=== PATIENT | male | born 1955 | race Caucasian/White ===

== ENCOUNTER → 2023-08-07 12:23 | Outpatient (REF) | payer BC, SELFPAY ==
[2023-08-07 13:46] LABS: ALT (SGPT) 39 U/L (0-50); AST (SGOT) 43 U/L (17-59); Albumin 4.2 g/dl (3.5-5.0); Alkaline Phosphatase 184 U/L (38-126); Blood Urea Nitrogen 24 mg/dl (9-20); Calcium 9.5 mg/dl (8.4-10.2); Carbon Dioxide 26 mmol/L (22-30); Chloride 103 mmol/L (98-107); Glucose 94 mg/dl (70-99); Sodium 138 mmol/L (135-145); Total Bilirubin 0.7 mg/dl (0.2-1.3); Total Protein 6.9 g/dl (6.3-8.2); eGFR > 60.00
== END ==
LOC: REG 12:23
PROVIDERS: ATTENDING PHYSICIAN Internal Medicine
DX: I10 Essential (primary) hypertension (principal)
CPT/HCPCS: 36415; 80053

== ENCOUNTER → 2023-08-31 18:06 | Outpatient (REF) | payer BC, SELFPAY | LOC: PAVMRI 18:06 | PROVIDERS: ATTENDING PHYSICIAN Orthopaedic Surgery; FAMILY PHYSICIAN Internal Medicine | DX: M25.572 Pain in left ankle and joints of left foot (principal) | CPT/HCPCS: 73721 ==

== ENCOUNTER → 2023-11-15 08:41 | Outpatient (REF) | payer BC, SELFPAY ==
[2023-11-15 10:57] LABS: Albumin 4.3 g/dl (3.5-5.0); Blood Urea Nitrogen 25 mg/dl (9-20); Calcium 9.4 mg/dl (8.4-10.2); Carbon Dioxide 24 mmol/L (22-30); Chloride 104 mmol/L (98-107); Glucose 107 mg/dl (70-99); Phosphorus 3.9 mg/dl (2.5-4.5); Potassium 4.2 mmol/L (3.5-5.1); Sodium 140 mmol/L (135-145); eGFR > 60.00
== END ==
LOC: REG 08:41
PROVIDERS: ATTENDING PHYSICIAN Internal Medicine
DX: I10 Essential (primary) hypertension (principal)
CPT/HCPCS: 36415; 80069

== ENCOUNTER → 2023-12-12 15:40 | Outpatient (REF) | payer BC, SELFPAY | LOC: REG 15:40 | PROVIDERS: ATTENDING PHYSICIAN Allergy & Immunology; FAMILY PHYSICIAN Internal Medicine | DX: J30.89 Other allergic rhinitis (principal); J30.1 Allergic rhinitis due to pollen; J30.2 Other seasonal allergic rhinitis | CPT/HCPCS: 36415; 86003 ==

== ENCOUNTER → 2024-03-04 12:33 | Outpatient (REF) | payer BC, SELFPAY ==
[2024-03-04 14:07] LABS: % Basophils 0.4 % (0-2); % Eosinophils 0.4 % (0-6); % Immature Granulocytes 0.2 % (0-0.5); % Lymphocytes 30.3 % (20.5-51.1); % Monocytes 9.3 % (1.7-9.3); % Neutrophils 59.4 % (42.2-75.2); Absolute Lymphocytes 1.4 10^3/uL (1.2-3.4); Absolute Monocytes 0.4 10^3/uL (0.1-0.6); Absolute Neutrophils 2.8 10^3/uL (1.4-6.5); Hemoglobin 15.3 g/dL (13.0-18.0); Mean Corpuscular Volume 91.3 fL (80.0-94.0); Mean Platelet Volume 10.2 fL (7.4-10.4); Nucleated Red Blood Cells % 0 % (-); Platelet Count 182 10^3/uL (130-400); Red Blood Cell Count 4.93 10^6/uL (4.70-6.10); Red Cell Dist. Width 12.3 % (11.5-14.5); White Blood Cell Count 4.8 10^3/uL (4.8-10.8)
[2024-03-04 14:10] LABS: ALT (SGPT) 64 U/L (0-50); AST (SGOT) 53 U/L (17-59); Albumin 4.6 g/dl (3.5-5.0); Alkaline Phosphatase 134 U/L (38-126); Blood Urea Nitrogen 21 mg/dl (9-20); Calcium 9.6 mg/dl (8.4-10.2); Carbon Dioxide 29 mmol/L (22-30); Chloride 101 mmol/L (98-107); Glucose 97 mg/dl (70-99); HDL Cholesterol 54 mg/dl; LDL Cholesterol, Calculated 86 mg/dl; Potassium 4.7 mmol/L (3.5-5.1); Sodium 137 mmol/L (135-145); Total Bilirubin 0.6 mg/dl (0.2-1.3); Total Cholesterol 166 mg/dl (50-199); Total Protein 7.4 g/dl (6.3-8.2); Triglyceride 134 mg/dl (10-149); Very Low Density Lipoprotein 26 mg/dl (0-30); eGFR > 60.00
[2024-03-04 14:11] LABS: Urine Albumin Negative (Neg - Trace); Urine Bilirubin Negative (Negative); Urine Character Clear (Clear); Urine Color Yellow; Urine Glucose Negative (Negative); Urine Ketone Negative (Negative); Urine Leukocyte Negative (Negative); Urine Nitrite Negative (Negative); Urine Occult Blood Negative (Negative); Urine Urobilinogen Negative (Neg - 1+)
[2024-03-04 14:38] LABS: PSA, Total - Screen 2.65 ng/ml (0.0-4.0)
== END ==
LOC: REG 12:33
PROVIDERS: ATTENDING PHYSICIAN Internal Medicine
DX: J30.2 Other seasonal allergic rhinitis (principal); I10 Essential (primary) hypertension; E78.5 Hyperlipidemia, unspecified; Z80.42 Family history of malignant neoplasm of prostate
CPT/HCPCS: 36415; 80053; 80061; 81003; 85025; G0103

== ENCOUNTER → 2024-04-08 08:45 | Outpatient (REF) | payer BC, SELFPAY | LOC: RAD 08:45 | PROVIDERS: ATTENDING PHYSICIAN Orthopaedic Surgery; FAMILY PHYSICIAN Internal Medicine | DX: M25.512 Pain in left shoulder (principal) | CPT/HCPCS: 73200 ==

== ENCOUNTER → 2025-01-03 14:27 | Outpatient (REF) | payer BC, SELFPAY ==
[2025-01-03 15:14] LABS: Hematocrit 47.7 % (39.0-52.0); Hemoglobin 16.6 g/dL (13.0-18.0); Mean Corp Hgb Conc. 34.8 g/dL (33.0-37.0); Mean Corpuscular Volume 90.2 fL (80.0-94.0); Nucleated Red Blood Cells % 0 % (-); Platelet Count 167 10^3/uL (130-400); Red Cell Dist. Width 12.1 % (11.5-14.5); Urine Character Clear (Clear)
[2025-01-03 15:22] LABS: Urine Red Blood Cell 0-2 /HPF (0-2); Urine White Cell 0-2 /HPF (0-5)
[2025-01-03 16:43] LABS: ALT (SGPT) 42 U/L (0-50); AST (SGOT) 32 U/L (17-59); Albumin 4.5 g/dl (3.5-5.0); Alkaline Phosphatase 157 U/L (38-126); Blood Urea Nitrogen 23 mg/dl (9-20); Calcium 9.5 mg/dl (8.4-10.2); Carbon Dioxide 25 mmol/L (22-30); Chloride 104 mmol/L (98-107); Glucose 93 mg/dl (70-99); HDL Cholesterol 65 mg/dl; LDL Cholesterol, Calculated 93 mg/dl; Potassium 4.3 mmol/L (3.5-5.1); Sodium 136 mmol/L (135-145); Total Protein 7.7 g/dl (6.3-8.2); Very Low Density Lipoprotein 33 mg/dl (0-30); eGFR > 60.00
[2025-01-03 17:41] LABS: PSA, Total - Screen 3.43 ng/ml (0.0-4.0)
== END ==
LOC: REG 14:27
PROVIDERS: ATTENDING PHYSICIAN Internal Medicine
DX: I10 Essential (primary) hypertension (principal); E78.5 Hyperlipidemia, unspecified; N40.0 Benign prostatic hyperplasia without lower urinary tract symptoms
CPT/HCPCS: 36415; 80053; 80061; 81003; 81015; 85025; G0103